=== PATIENT | female | born 1995 | race Caucasian/White ===

== ENCOUNTER 2024-12-05 12:10 | Emergency (ER) | payer BC, MEDICAID ==
[2024-12-05] MEDS: Sodium Chloride 0.9% 1,000 ML IV ONE (12:31)
[2024-12-05 12:44] LABS: BASOPHILS ABSOLUTE AUTO 0.01 10^3/uL (0.00-0.10); BASOPHILS PERCENT AUTO 0.1 % (0.0-1.0); EOSINOPHILS ABSOLUTE AUTO 0.01 10^3/uL (0.10-0.30); EOSINOPHILS PERCENT AUTO 0.1 % (1.0-3.0); HEMATOCRIT 43.3 % (37.0-47.0); IMMATURE GRAN ABSOLUTE AUTO 0.04 10^3/uL (0.00-0.04); IMMATURE GRAN PERCENT AUTO 0.3 % (0.0-0.4); LYMPHOCYTES ABSOLUTE AUTO 1.73 10^3/uL (1.00-4.00); LYMPHOCYTES PERCENT AUTO 13.7 % (20.0-40.0); MEAN CORPUSCULAR HEMOGLOBIN 27.3 pg (27.0-31.0); MEAN CORPUSCULAR HGB CONC 32.3 g/dL (32.0-36.0); MEAN CORPUSCULAR VOLUME 84.4 fL (82.0-92.0); MEAN PLATELET VOLUME 9.3 fL (7.4-10.4); MONOCYTES ABSOLUTE AUTO 1.07 10^3/uL (0.10-0.80); MONOCYTES PERCENT AUTO 8.5 % (2.0-8.0); NEUTROPHILS ABSOLUTE AUTO 9.79 10^3/uL (2.50-7.00); NEUTROPHILS PERCENT AUTO 77.3 % (50.0-70.0); PLATELET COUNT,PLT 262 10^3/uL (150-400); RED BLOOD CELL COUNT 5.13 10^6/uL (3.80-5.50); RED CELL DISTRIBUTION WIDTH 15.1 % (11.5-14.5); WHITE BLOOD CELL COUNT,WBC 12.65 10^3/uL (5.00-10.00)
[2024-12-05 13:00] LABS: ALBUMIN 2.94 g/dL (3.40-5.00); ANION GAP 13.5 mmol/L (5-15); BILIRUBIN TOTAL 0.7 mg/dL (0.2-1.0); CALCIUM 8.5 mg/dL (8.7-10.3); CARBON DIOXIDE,CO2 24.3 mmol/L (21.0-32.0); CREATININE 0.85 mg/dL (0.51-1.17); EST CRCL DRUG DOSING (CG) 98.51 mL/min; POTASSIUM,K 3.8 mmol/L (3.5-5.1); PROTEIN TOTAL,TP 7.1 g/dL (6.4-8.2)
[2024-12-05] MEDS: cefTRIAXone 1 GM Vial IVPUSH ONE (13:20)
[2024-12-05] MEDS: Amoxicillin/Clavulanate K 875-125 MG Tab PO ONE (13:23)
== END 2024-12-05 13:45 | disposition home or self-care (01) ==
LOC: KA.ED 12:10
DX: L03.115 Cellulitis of right lower limb (principal); Z91.048 Other nonmedicinal substance allergy status; Z91.018 Allergy to other foods; Z88.8 Allergy status to other drugs, medicaments and biological substances; Z88.2 Allergy status to sulfonamides
CPT/HCPCS: 36415; 71045; 80053; 83605; 85025; 93010; 96361; 96374; 99284; 99285-25; A9270-GY; J0696; J7030